=== PATIENT | female | born 1980 | race African-American/Black ===

== ENCOUNTER 2017-02-02 10:38 | Observation (INO) | payer MEDICAID ==
[~2017-02-02] VITALS: Ht 165.1 cm; Wt 90.0 kg
[2017-02-02] MEDS ORDERED: CITA20TA4 PO (10:47)
[2017-02-02] MEDS ORDERED: VENTAER INH (10:47)
[2017-02-02 10:48] VITALS: BP 128/67; PULSE 75; RESP 17; TEMP 98.5; O2SAT 100
[2017-02-02 10:59] VITALS: O2SAT 100
[2017-02-02] MEDS ORDERED: methylPREDNISolone SOD SUCC 125 MG/2 ML VIAL IV PUSH ONE (11:00)
[2017-02-02] MEDS ORDERED: SODIUM CHLORIDE 0.9% FLUSH 10 ML FLUSH IVF PRN (11:00)
[2017-02-02] MEDS: RESP: ALBUTEROL 2.5 MG/IPRATROPIUM 0.5 MG NEB (SCH) INH ×2 (11:04→11:05)
[2017-02-02] MEDS ORDERED: KETOROLAC TROMETHAMINE 30 MG/ML (IVP) VIAL IV PUSH ONE (11:15)
--- NOTE | 2017-02-02 11:18 | RADRPT ---
EXAM DATE/TIME: 02/02/2017 11:12 [facility] COMPARISON: No previous studies available for comparison. INDICATIONS : Short of breath or difficulty breathing. MEDICAL HISTORY : Asthma. SURGICAL HISTORY : None. ENCOUNTER: Initial ACUITY: 3 days PAIN SCORE: 0/10 LOCATION: Bilateral chest FINDINGS: A single view of the chest demonstrates the lungs to be symmetrically aerated without evidence of mas s, infiltrate or effusion. The cardiomediastinal contours are unremarkable. Osseous structures are intact. CONCLUSION: Normal examination for a patient of this age. Quinn Banks MD on February 02, 2017 at 11:15 Board Certified Radiologist. This report was verified electronically.
--- NOTE | 2017-02-02 11:40 | PD ---
HPI Chief Complaint: Chest Pain Time Seen by Provider: 10:51 Travel History International Travel<30 days: No Contact w/Intl Traveler<30days: No Traveled to known affect area: No History of Present Illness HPI 37-year-old female presents to emergency Department with complaint of sternal chest pain that is worse with breathing and palpation and shortness of breath since yesterday. Has history of asthma. Used her inhaler this morning with no relief of symptoms. Reports cold symptoms last week that have resolved. Denies cough, nasal congestion. Reports bilateral ear pain at times. Reports hoarse voice. Denies fevers, abdominal pain, vomiting. Has not taken any other medications or tried any other treatments to alleviate her symptoms. Pain is 7/10. Describes it as a pressure. Chest pain is worse without deep breathing. Aggravated with deep breathing and palpation. History of asthma. Dr. Houser is primary care provider. No known allergies. Has no other medical complaints. No other modifying factors or associated signs and symptoms. PFSH Past Medical History Asthma: Yes Depression: Yes Tetanus Vaccination: Unknown Influenza Vaccination: No ?: Not Past Surgical History Surgical History: No Previous Surgery Social History Alcohol Use: No Tobacco Use: Yes (02/09 ppd) Substance Use: No Allergies-Medications (Allergen,Severity, Reaction): Coded Allergies: No Known Allergies (Unverified , 02/02/17) Reported Meds & Prescriptions Reported Meds & Active Scripts Active Reported Ventolin Hfa 18 GM Inh (Albuterol Sulfate) 90 Mcg/Act Aer 2 Puff INH Q4-6H PRN Citalopram (Citalopram Hydrobromide) 20 Mg Tab 20 Mg PO DAILY Review of Systems Except as stated in HPI: all other systems reviewed are Neg Physical Exam Narrative GENERAL: Well-nourished, well-developed black female patient, in no acute distress; afebrile, nontoxic-appearing SKIN: Warm and dry. HEAD: Atraumatic. Normocephalic. EYES: Pupils equal and round. No scleral icterus. No injection or drainage. ENT: Mucosa pink and moist. No erythema or exudates. No uvular edema. No uvular , palatal, or tonsillar deviation. Airway patent. Nares without nasal blood, purulent drainage or septal hematoma. EARS: Bilateral pinnae and external canals appear within normal limits. Bilateral tympanic membranes without erythema, dullness or perforation. NECK: Trachea midline. No lymphadenopathy. CARDIOVASCULAR: Regular rate and rhythm. No murmur appreciated. RESPIRATORY: No accessory muscle use. Lung sounds significantly decreased throughout. Lung Sounds equal bilaterally. Mild tachypnea. No retractions. No Audible wheezing noted. GASTROINTESTINAL: Abdomen soft, non-tender, nondistended. Hepatic and splenic margins not palpable. Bowel sounds are active 4 quadrants. MUSCULOSKELETAL: No obvious deformities. No clubbing. No cyanosis. No edema. NEUROLOGICAL: Awake and alert. Oriented 3. No obvious cranial nerve deficits. Motor grossly within normal limits. Normal speech. Moves all extremities. 5/5 strength to all extremities. PSYCHIATRIC: Appropriate mood and affect; insight and judgment normal. Data Data Last Documented VS Vital Signs Date Time Temp Pulse Resp B/P (MAP) Pulse Ox O2 Delivery O2 Flow Rate FiO2 02/02/17 12:53 93 16 115/56 (75) 100 Room Air 02/02/17 10:59 2.00 02/02/17 10:48 98.5 Orders Orders Chest, Single Ap (02/02/17 10:54) Ecg Monitoring (02/02/17 10:54) Iv Access Insert/Monitor (02/02/17 10:54) Oximetry (02/02/17 10:54) Oxygen Administration (02/02/17 10:54) Methylprednisolone So Succ Inj (Solumedr (02/02/17 11:00) Albuterol-Ipratropium Neb (Duoneb Neb) (02/02/17 11:00) Sodium Chloride 0.9% Flush (Ns Flush) (02/02/17 11:00) Influenzae A/B Antigen (02/02/17 11:05) Electrocardiogram (02/02/17 11:05) Ketorolac Inj (Toradol Inj) (02/02/17 11:15) Basic Metabolic Panel (Bmp) (02/02/17 11:41) Complete Blood Count With Diff (02/02/17 11:41) D-Dimer (02/02/17 11:41) Chest, Single Ap (02/02/17 ) Albuterol Neb (Albuterol Neb) (02/02/17 11:45) Ed Urine Pregnancytest Poc (02/02/17 13:20) Admit Order (Ed Use Only) (02/02/17 15:07) Labs Laboratory Tests Test 02/02/17 12:30 02/02/17 13:30 White Blood Count 6.8 TH/MM3 Red Blood Count 4.32 MIL/MM3 Hemoglobin 13.2 GM/DL Hematocrit 39.3 % Mean Corpuscular Volume 90.8 FL Mean Corpuscular Hemoglobin 30.5 PG Mean Corpuscular Hemoglobin Concent 33.6 % Red Cell Distribution Width 12.7 % Platelet Count 316 TH/MM3 Mean Platelet Volume 8.1 FL Neutrophils (%) (Auto) 59.7 % Lymphocytes (%) (Auto) 31.2 % Monocytes (%) (Auto) 6.3 % Eosinophils (%) (Auto) 2.0 % Basophils (%) (Auto) 0.8 % Neutrophils # (Auto) 4.1 TH/MM3 Lymphocytes # (Auto) 2.1 TH/MM3 Monocytes # (Auto) 0.4 TH/MM3 Eosinophils # (Auto) 0.1 TH/MM3 Basophils # (Auto) 0.1 TH/MM3 CBC Comment DIFF FINAL Differential Comment D-Dimer Quantitative (PE/DVT) 0.90 MG/L FEU Blood Urea Nitrogen 8 MG/DL Creatinine 0.84 MG/DL Random Glucose 123 MG/DL Calcium Level 8.4 MG/DL Sodium Level 140 MEQ/L Potassium Level 3.2 MEQ/L Chloride Level 106 MEQ/L Carbon Dioxide Level 25.0 MEQ/L Anion Gap 9 MEQ/L Estimat Glomerular Filtration Rate 92 ML/MIN [facility] Medical Decision Making Medical Screen Exam Complete: Yes Emergency Medical Condition: Yes Medical Record Reviewed: Yes Differential Diagnosis Asthma exacerbation, PE, pneumonia, costochondritis Narrative Course 37-year-old female with history of asthma with chest pain with palpation and deep breathing and shortness of breath. The patient's lung sounds are decreased significantly on physical exam. Mild tachypnea. No acute distress. Oxygen saturation is a her percent on room air. Respiratory called to the bedside for breathing treatments. Solu-Medrol 125 mg ordered and administered. 1142: EKG was normal sinus rhythm with sinus arrhythmia. Chest x-ray with no acute findings. Dr. Bennett recommended CBC, BMP, d-dimer. Orders entered. Patient with continued decreased lung sounds after DuoNeb 3. Albuterol 3 ordered. 1320: CBC unremarkable. D-dimer 0.90. CT pulmonary angiogram ordered. 1320: Lung sounds with improved air flow on reevaluation. Patient reports improvement in shortness of breath. Continues to complain of chest pain. 1345: UPT is positive. CT pulmonary angiogram DC'd. Patient to be admitted for observation for asthma exacerbation. 1506: Report given to SHAI Acosta for patient admission. Physician Communication Physician Communication SHAI Willingham Diagnosis Primary Impression: Asthma exacerbation Qualified Codes: J45.901 - Unspecified asthma with (acute) exacerbation Additional Impression: Qualified Codes: Z34.90 - Encounter for supervision of normal , unspecified, unspecified trimester Admitting Information Admitting Physician Requests: Observation Mary Ellen Palmer [facility] Feb 02, 2017 11:40
[2017-02-02] MEDS: RESP: ALBUTEROL 2.5 MG/3 ML NEB (SCH) INH (11:49)
--- NOTE | 2017-02-02 12:16 | RADRPT ---
EXAM DATE/TIME: 02/02/2017 11:31 [facility] COMPARISON: CHEST SINGLE AP, February 02, 2017, 11:12. INDICATIONS : Short of breath. MEDICAL HISTORY : asthma SURGICAL HISTORY : None. ENCOUNTER: Initial ACUITY: 1 day PAIN SCORE: 8/10 LOCATION: Bilateral chest FINDINGS: A single view of the chest demonstrates the lungs to be symmetrically aerated without evidence of mas s, infiltrate or effusion. The cardiomediastinal contours are unremarkable. Osseous structures are intact. CONCLUSION: No acute disease. Mervin Phillip MD on February 02, 2017 at 12:14 Board Certified Radiologist. This report was verified electronically.
[2017-02-02 12:46] LABS: AUTOMATED NEUTROPHIL # 4.1 TH/MM3 (1.8-7.7); BASOPHIL # 0.1 TH/MM3 (0-0.2); BASOPHIL % 0.8 % (0.0-2.0); EOSINOPHIL # 0.1 TH/MM3 (0-0.4); HEMATOCRIT 39.3 % (35.0-46.0); HEMOGLOBIN 13.2 GM/DL (11.6-15.3); LYMPH % 31.2 % (9.0-44.0); LYMPHOCYTE # 2.1 TH/MM3 (1.0-4.8); MEAN CELL VOLUME 90.8 FL (80.0-100.0); MEAN CORPUSCULAR HEMOGLOBIN 30.5 PG (27.0-34.0); MEAN CORPUSCULAR HGB CONC 33.6 % (32.0-36.0); MEAN PLATELET VOLUME 8.1 FL (7.0-11.0); MONO % 6.3 % (0.0-8.0); MONOCYTE # 0.4 TH/MM3 (0-0.9); NEUT % 59.7 % (16.0-70.0); PLATELET COUNT 316 TH/MM3 (150-450); RED BLOOD COUNT 4.32 MIL/MM3 (4.00-5.30); RED CELL DISTRIBUTION WIDTH 12.7 % (11.6-17.2); WHITE BLOOD COUNT 6.8 TH/MM3 (4.0-11.0)
[2017-02-02 12:53] VITALS: BP 115/56; PULSE 93; RESP 16; O2SAT 100
[2017-02-02 13:58] LABS: CALCIUM 8.4 MG/DL (8.5-10.1); CREATININE 0.84 MG/DL (0.50-1.00)
[2017-02-02] MEDS ORDERED: RESP: ALBUTEROL 2.5 MG/3 ML NEB (PRN) NEB (15:15)
[2017-02-02] MEDS ORDERED: ONDANSETRON HCL 4 MG/2 ML VIAL IVP PRN (15:15)
[2017-02-02] MEDS ORDERED: SODIUM CHLORIDE 0.9% FLUSH 10 ML FLUSH IV FLUSH PRN (15:15)
[2017-02-02] MEDS ORDERED: POTASSIUM CHLORIDE 25 MEQ EFFERVESCENT TAB PO ONE (15:15)
[2017-02-02] MEDS ORDERED: NALOXONE HCL 0.4 MG/ML AMP IV PUSH PRN (15:15)
[2017-02-02] MEDS ORDERED: ACETAMINOPHEN 325 MG TAB PO PRN (15:15)
--- NOTE | 2017-02-02 15:26 | HHI.HP ---
[facility] Unknown Admission Diagnosis asthma exacerbation Diagnoses: Chief Complaint: Shortness of breathing and chest pain Travel History International Travel<30 Days: No Contact w/Intl Traveler <30 Da: No Traveled to Known Affected Are: No History of Present Illness This is a 37-year-old female past medical history of asthma who presented with chest pain and shortness of breathing. Patient stated that she had URI symptoms for the past 3 weeks. She stated that she just now getting over cold. Patient stated that yesterday she started to have chest pain that was constant and worsened with deep inspiration. She stated that since she couldn' t take deep breaths with the chest pain she went to the emergency department. She denies any cough or sputum production. Patient also denies any fever. She stated that she last used her. One inhaler about 3 weeks ago but she rarely has any asthma exacerbation. She denies any fevers or chills. She continues to smoke tobacco about 5-6 cigarettes a day. Denied any heavy lifting or trauma to the chest. All other review of system reviewed and negative. Past Family Social History Past Medical History Asthma Anxiety Past Surgical History Denies any past surgical history. Reported Medications Reported Meds & Active Scripts Active Reported Ventolin Hfa 18 GM Inh (Albuterol Sulfate) 90 Mcg/Act Aer 2 Puff INH Q4-6H PRN Citalopram (Citalopram Hydrobromide) 20 Mg Tab 20 Mg PO DAILY Allergies: Coded Allergies: No Known Allergies (Unverified , 02/02/17) Active Ordered Medications Current Medications Methylprednisolone Sodium Succinate (SoluMEDROL INJ) 125 mg ONCE ONCE IV PUSH Last administered on 02/02/17 11:00; Start 02/02/17 at 11:00; Stop 02/02/17 at 11:01; Status DC Albuterol/ Ipratropium (Duoneb Neb) 1 ampule Q15M INH Last administered on 11:05; Start 02/02/17 at 11:00; Stop 02/02/17 at 11:31; Status DC Sodium Chloride (NS Flush) 2 ml UNSCH PRN IVF FLUSH AFTER USING IV ACCESS; Start 02/02/17 at 11:00; Stop 02/02/17 at 15:13; Status DC Ketorolac Tromethamine (Toradol Inj) 30 mg ONCE ONCE IV PUSH Last administered on 02/02/17t 11:16; Start 02/02/17 at 11:15; Stop 02/02/17 at 11 :16; Status DC Albuterol Sulfate (Albuterol Neb) 2.5 mg Q15M INH Last administered on t 11:49; Start 02/02/17 at 11:45; Stop 02/02/17 at 12:16; Status DC Sodium Chloride (NS Flush) 2 ml UNSCH PRN IV FLUSH FLUSH AFTER USING IV ACCESS ; Start 02/02/17 at 15:15 Sodium Chloride (NS Flush) 2 ml BID IV FLUSH ; Start 02/02/17 at 21:00 Acetaminophen (Tylenol) 650 mg Q4H PRN PO TEMP > 100.4; Start 02/02/17 at 15: 15 Ondansetron HCl (Zofran Inj) 4 mg Q6H PRN IVP NAUSEA OR VOMITING; Start at 15:15 Naloxone HCl (Narcan Inj) 0.4 mg UNSCH PRN IV PUSH SEE LABEL COMMENTS; Start 02/02/17 at 15:15 Methylprednisolone Sodium Succinate (SoluMEDROL INJ) 40 mg Q8HR IV PUSH ; Start 02/02/17 at 22:00 Albuterol/ Ipratropium (Duoneb Neb) 1 ampule Q4HR NEB NEB ; Start 02/02/17 at 16:00 Albuterol Sulfate (Albuterol Neb) 2.5 mg Q2HR NEB PRN NEB SOB/wheezing; Start 02/02/17 at 15:15 Azithromycin 500 mg/Sodium Chloride 250 ml @ 250 mls/hr Q24H IV ; Start at 16:00 Potassium Bicarb/ Potassium Chloride (K-Lyte Cl Eff) 25 meq ONCE ONCE PO ; Start 02/02/17 at 15:15; Stop 02/02/17 at 15:16; Status [place] Family History Mother had history of multiple MIs at a young age. Maternal grandmother from [place]. Social History Smokes 5-6 cigarettes a day. Denies any alcohol or illicit drug use. Physical Exam Vital Signs Vital Signs Date Time Temp Pulse Resp B/P (MAP) Pulse Ox O2 Delivery O2 Flow Rate FiO2 02/02/17 12:53 93 16 115/56 (75) 100 Room Air 02/02/17 10:59 Nasal Cannula 2.00 02/02/17 10:59 100 Room Air 02/02/17 10:49 Room Air 02/02/17 10:48 98.5 75 17 128/67 (87) 100 Physical Exam GENERAL: This is a well-nourished, well-developed patient, in no apparent distress. SKIN: No rashes, ecchymoses or lesions. Cool and dry. HEAD: Atraumatic. Normocephalic. No temporal or scalp tenderness. EYES: Pupils equal round and reactive. Extraocular motions intact. No scleral icterus. No injection or drainage. ENT: Nose without bleeding, purulent drainage or septal hematoma. Throat without erythema, tonsillar hypertrophy or exudate. Uvula midline. Airway patent. NECK: Trachea midline. No JVD or lymphadenopathy. Supple, nontender, no meningeal signs. CARDIOVASCULAR: Regular rate and rhythm without murmurs, gallops, or rubs. Tenderness to palpation on the chest that reproduces the chest pain at that patient is complaining about. RESPIRATORY: Poor aeration secondary to poor inspiration. No wheezing or rhonchi noted. GASTROINTESTINAL: Abdomen soft, non-tender, nondistended. No hepato-splenomegaly , or palpable masses. No guarding. MUSCULOSKELETAL: Extremities without clubbing, cyanosis, or edema. No joint tenderness, effusion, or edema noted. No calf tenderness. Negative Homans sign bilaterally. NEUROLOGICAL: Awake and alert. Cranial nerves II through XII intact. Motor and sensory grossly within normal limits. Five out of 5 muscle strength in all muscle groups. Normal speech. Laboratory Laboratory Tests Test 02/02/17 12:30 02/02/17 13:30 White Blood Count 6.8 Red Blood Count 4.32 Hemoglobin 13.2 Hematocrit 39.3 Mean Corpuscular Volume 90.8 Mean Corpuscular Hemoglobin 30.5 Mean Corpuscular Hemoglobin Concent 33.6 Red Cell Distribution Width 12.7 Platelet Count 316 Mean Platelet Volume 8.1 Neutrophils (%) (Auto) 59.7 Lymphocytes (%) (Auto) 31.2 Monocytes (%) (Auto) 6.3 Eosinophils (%) (Auto) 2.0 Basophils (%) (Auto) 0.8 Neutrophils # (Auto) 4.1 Lymphocytes # (Auto) 2.1 Monocytes # (Auto) 0.4 Eosinophils # (Auto) 0.1 Basophils # (Auto) 0.1 CBC Comment DIFF FINAL Differential Comment D-Dimer Quantitative (PE/DVT) 0.90 Blood Urea Nitrogen 8 Creatinine 0.84 Random Glucose 123 Calcium Level 8.4 Sodium Level 140 Potassium Level 3.2 Chloride Level 106 Carbon Dioxide Level 25.0 Anion Gap 9 Estimat Glomerular Filtration Rate 92 Date/Time Source Procedure Growth Status 02/02/17 11:25 Nasal Washing Influenza Types A,B Antigen ([facility]) - Final NEGATIVE FOR FLU A AND B ANTIGEN.... Complete Result Diagram: 02/02/17 1230 02/02/17 1330 Imaging Last Impressions Chest X-Ray 02/02/17 1054 Signed Impressions: Service Date/Time: January 11:12 - CONCLUSION: Normal examination for a patient of this age. MD Radha Haque VTE Risk Assessment Caprini VTE Risk Assessment: No/Low Risk (score <= 1) Caprini Risk Assessment Model Point Value = 1 Point Value = 2 Point Value = 3 Point Value = 5 Age 41-60 Minor surgery BMI > 25 kg/m2 Swollen legs Varicose veins or History of unexplained or recurrent spontaneous Oral contraceptives or hormone replacement Sepsis (< 1 month) Serious lung disease, including pneumonia (< 1 month) Abnormal pulmonary function Acute myocardial infarction Congestive heart failure (< 1 month) History of inflammatory bowel disease Medical patient at bed rest Age 61-74 Arthroscopic surgery Major open surgery (> 45 min) Laparoscopic surgery (> 45 min) Malignancy Confined to bed (> 72 hours) Immobilizing plaster cast Central venous access Age >= 75 History of VTE Family history of VTE Factor V Leiden Prothrombin [id number] Lupus anticoagulant Anticardiolipin antibodies Elevated serum homocysteine Heparin-induced thrombocytopenia Other congenital or acquired thrombophilia Stroke (< 1 month) Elective arthroplasty Hip, pelvis, or leg fracture Acute spinal cord injury (< 1 month) Prophylaxis Regimen Total Risk Factor Score Risk Level Prophylaxis Regimen 0-1 Low Early ambulation 2 Moderate Order ONE of the following: *Sequential Compression Device (SCD) *Heparin 5000 units SQ BID 3-4 Higher Order ONE of the following medications: *Heparin 5000 units SQ TID *Enoxaparin/Lovenox 40 mg SQ daily (WT < 150 kg, CrCl > 30 mL/min) *Enoxaparin/Lovenox 30 mg SQ daily (WT < 150 kg, CrCl > 10-29 mL/min) *Enoxaparin/Lovenox 30 mg SQ BID (WT < 150 kg, CrCl > 30 mL/min) AND/OR *Sequential Compression Device (SCD) 5 or more Highest Order ONE of the following medications: *Heparin 5000 units SQ TID (Preferred with Epidurals) *Enoxaparin/Lovenox 40 mg SQ daily (WT < 150 kg, CrCl > 30 mL/min) *Enoxaparin/Lovenox 30 mg SQ daily (WT < 150 kg, CrCl > 10-29 mL/min) *Enoxaparin/Lovenox 30 mg SQ BID (WT < 150 kg, CrCl > 30 mL/min) AND *Sequential Compression Device (SCD) Assessment and Plan Assessment and Plan This is a 37-year-old female complaining of shortness of breathing and chest pain Atypical chest pain -Reproducible most likely musculoskeletal/costochondritis. -Patient will be on Solu-Medrol due to her asthma exacerbation. -We will get 3 sets of troponin but very unlikely cardiac in nature. Asthma exacerbation, mild -During my examination I could not appreciate any wheezing. Patient has poor aeration secondary to poor inspiration from musculoskeletal chest pain. -We will give DuoNeb nebs, Solu-Medrol, azithromycin. Monitor clinically. DVT prophylaxis -Low risk. Discussed Condition With Patient Lubna Hill MD Feb 02, 2017 15:26
[2017-02-02] MEDS: RESP: ALBUTEROL 2.5 MG/IPRATROPIUM 0.5 MG NEB (SCH) NEB ×3 (15:29→23:22)
[2017-02-02] MEDS ORDERED: AZITHROMYCIN INJ 500 MG in SODIUM CHLOR 0.9% 250 ML INJ 250 ML IV SCH (16:00)
[2017-02-02] MEDS: SODIUM CHLORIDE 0.9% FLUSH 10 ML FLUSH IV FLUSH SCH (21:00)
[2017-02-02] MEDS ORDERED: methylPREDNISolone SOD SUCC 40 MG/1 ML VIAL IV PUSH SCH (22:00)
[2017-02-03 00:57] VITALS: BP 108/54; PULSE 86; RESP 18; TEMP 98.2; O2SAT 99
[2017-02-03] MEDS: RESP: ALBUTEROL 2.5 MG/IPRATROPIUM 0.5 MG NEB (SCH) NEB ×2 (02:43→08:39)
[2017-02-03 06:04] VITALS: BP 106/53; PULSE 92; RESP 18; TEMP 98.5; O2SAT 100
[2017-02-03 08:04] VITALS: BP 113/52; PULSE 86; RESP 18; TEMP 98.7; O2SAT 99
[2017-02-03 08:41] VITALS: O2SAT 98
[2017-02-03] MEDS ORDERED: methylPREDNISolone SOD SUCC 40 MG/1 ML VIAL IV PUSH SCH (09:00)
[2017-02-03] MEDS: SODIUM CHLORIDE 0.9% FLUSH 10 ML FLUSH IV FLUSH SCH (09:19)
[2017-02-03] MEDS ORDERED: PRED10 PO (10:34)
[2017-02-03] MEDS ORDERED: ALBU.5I NEB (10:34)
--- NOTE | 2017-02-03 10:40 | HHI.DS ---
Discharge Summary Admission Date Feb 02, 2017 at 15:08 Discharge Date: Feb 03, 2017 Admitting Diagnosis asthma exacerbation (1) Asthma exacerbation ICD Code: J45.901 - Unspecified asthma with (acute) exacerbation Status: Acute (2) ICD Code: Z34.90 - Encounter for supervision of normal , unspecified, unspecified trimester Status: Acute Procedures None Brief History - From Admission This is a 37-year-old female past medical history of asthma who presented with chest pain and shortness of breathing. Patient stated that she had URI symptoms for the past 3 weeks. She stated that she just now getting over cold. Patient stated that yesterday she started to have chest pain that was constant and worsened with deep inspiration. She stated that since she couldn' t take deep breaths with the chest pain she went to the emergency department. She denies any cough or sputum production. Patient also denies any fever. She stated that she last used her. One inhaler about 3 weeks ago but she rarely has any asthma exacerbation. She denies any fevers or chills. She continues to smoke tobacco about 5-6 cigarettes a day. Denied any heavy lifting or trauma to the chest. All other review of system reviewed and negative. CBC/BMP: 02/02/17 1230 02/02/17 1330 Significant Findings Laboratory Tests Test 02/02/17 12:30 02/02/17 13:30 02/02/17 15:42 D-Dimer Quantitative (PE/DVT) 0.90 MG/L FEU (0.00-0.50) Random Glucose 123 MG/DL (74-106) Calcium Level 8.4 MG/DL (8.5-10.1) Potassium Level 3.2 MEQ/L (3.5-5.1) Troponin I LESS THAN 0.02 NG/ML Hospital Course Mrs. Suarez is a 37 year old female. She came in secondary to an asthma exacerbation. Systemic steroids and nebulized treatments she has improve quickly overnight. She was also found to be during this visit. She is now nearing baseline and medically stable for discharge to home. She'll be discharged with albuterol vials to use with her nebulizer and 4 days of low- dose prednisone. Pt Condition on Discharge: Stable Discharge Disposition: Discharge Home Discharge Time: <= 30 minutes Discharge Instructions DIET: Follow Instructions for: As Tolerated, No Restrictions Activities you can perform: Regular-No Restrictions Follow up Referrals: PRODUCT DISTRIBUTION SPECIALIST - 2 Weeks PCP Follow-up - 2 Weeks PCP Follow-up - 2 Weeks New Medications: Albuterol Neb (Albuterol Neb) 2.5 Mg/0.5 Ml Neb 2.5 MG NEB Q6HR NEB for Asthma, #30 BOX Note: The Albuterol Sulfate Inhalation Solution is concentrated and must be diluted. Read complete instructions carefully before using. Prednisone (Prednisone) 10 Mg Tab 10 MG PO DAILY for Asthma, #4 TAB 0 Refills Continued Medications: Albuterol 18 GM Inh (Ventolin Hfa 18 GM Inh) 90 Mcg/Act Aer 2 PUFF INH Q4-6H PRN for SHORTNESS OF BREATH, #1 INHALER 0 Refills Citalopram (Citalopram) 20 Mg Tab 20 MG PO DAILY for Control Depression, #30 TAB 0 Refills Evaristo Mobley MD Feb 03, 2017 10:40
--- NOTE | 2017-02-03 14:09 | EKG ---
Date Performed: 02/02/2017 Time Performed: 11:37:16 PTAGE: 37 years EKG: Sinus rhythm WITH SINUS ARRHYTHMIA NORMAL ECG NO PREVIOUS TRACING DOCTOR: Brian Jones Interpretating Date/Time 02/03/2017 14:08:15
== END 2017-02-03 11:41 | disposition home or self-care (01) ==
LOC: NEPD 10:38 → NEDA 15:08 → NEPHCDU 15:56
PROVIDERS: ADMIT Hospitalist; ATTEND Hospitalist
DX: J45.901 Unspecified asthma with (acute) exacerbation (principal); R07.9 Chest pain, unspecified; M94.0 Chondrocostal junction syndrome [Tietze]; J00 Acute nasopharyngitis [common cold]; Z72.0 Tobacco use; Z33.1 Pregnant state, incidental
CPT/HCPCS: 71010; 80048; 84484; 84703; 85025; 85379; 87804; 93005; 94640; 94664; 96374; 96375; 96376; 99285; G0378; J1885; J2920; J2930; J7613